=== PATIENT | female | born 1940 | race Caucasian/White ===

== ENCOUNTER → 2017-03-12 | Outpatient (CLI) | payer OTHER, MEDICARE | END | disposition home or self-care (01) | DX: M17.11 Unilateral primary osteoarthritis, right knee (principal); R26.9 Unspecified abnormalities of gait and mobility; R29.3 Abnormal posture; M79.604 Pain in right leg; M25.561 Pain in right knee; M25.661 Stiffness of right knee, not elsewhere classified; Z74.1 Need for assistance with personal care | CPT/HCPCS: 97110 GP; 97150 GO; 97161 GP; 97165 GO; G8978 GP; G8979 GP; G8980 GP; G8987 GO; G8988 GO; G8989 GO ==

== ENCOUNTER 2017-04-08 21:25 | Inpatient (IN) | payer OTHER, MEDICARE ==
[~2017-04-08] VITALS: Ht 172.7 cm; Wt 84.8 kg
[~2017-04-08 21:25] MED LIST: ESSENTIAL WOMA1 EAC1 PO; GLUCOPHAGE1000 MG PO; HYDROCHLOROTH12.5 M3 PO; HYDROCHLOROTHIA25 MG PO; NORVASC5 MG PO; VOLTAREN50 MG PO; ZESTRIL20 MG PO; ZOCOR20 MG PO
[2017-04-09] MEDS ORDERED: LOPRESSOR25 MG PO (11:19)
[2017-04-09 11:30] VITALS: BP 153/74
[2017-04-09 15:45] LABS: POINT-OF-CARE METER ID UU13113675; POINT-OF-CARE USER ID ADMSLT55
[2017-04-09 16:56] VITALS: BP 134/63
[2017-04-09 17:00] VITALS: BP 129/59
[2017-04-09 17:41] LABS: POINT-OF-CARE METER ID UU13113712
[2017-04-09 20:31] VITALS: BP 118/57
[2017-04-09 21:00] VITALS: BP 116/59
[2017-04-09 21:49] LABS: POINT-OF-CARE METER ID UU13113712
[2017-04-10] VITALS (7 sets, daily range): BP systolic 98–137; BP diastolic 50–69
[2017-04-10 04:51] LABS: HEMATOCRIT 31.9 % (36.0-46.0); MCV 91.4 FL (83-99)
[2017-04-10 05:01] LABS: CHLORIDE 107 mEq/L (99-109); POTASSIUM 4.8 mEq/L (3.7-5.4); SODIUM 139 mEq/L (136-147)
[2017-04-10 05:02] LABS: GLUCOSE 147 mg/dL (70-99)
[2017-04-10 05:04] LABS: ANION GAP 11 MEQ/L (2-14)
[2017-04-10 05:06] LABS: GFR ESTIMATE (CALCULATED) > 59 mL/min/
[2017-04-10 05:07] LABS: UREA NITROGEN (BUN) 20 mg/dL (9-23)
[2017-04-10 07:25] LABS: POINT-OF-CARE METER ID UU13113712
[2017-04-10 11:41] LABS: POINT-OF-CARE METER ID UU13113712
[2017-04-10] MEDS ORDERED: ENDOCET 5-3251 EACH PO (12:31)
[2017-04-10] MEDS ORDERED: ELIQUIS2.5 MG PO (12:31)
[2017-04-10 16:50] LABS: POINT-OF-CARE METER ID UU13113712
[2017-04-10 21:45] LABS: POINT-OF-CARE METER ID UU13113712
[2017-04-11 04:12] VITALS: BP 107/50
[2017-04-11 04:52] LABS: HEMATOCRIT 30.2 % (36.0-46.0); MCV 89.1 FL (83-99)
[2017-04-11 07:23] LABS: POINT-OF-CARE METER ID UU13113712; POINT-OF-CARE USER ID ENVGAF
[2017-04-11 07:57] VITALS: BP 137/60
[2017-04-11 12:05] VITALS: BP 148/67
[2017-04-11 12:13] LABS: POINT-OF-CARE METER ID UU13113712; POINT-OF-CARE USER ID ENVGAF
== END 2017-04-11 14:38 | DRG 470 ==
LOC: ENRESERV 21:25 → 2SOUTH 04-09 10:38 → 3WEST 04-09 10:38 → 2SOUTH 04-09 11:13 → 3WEST 04-09 16:20
PROVIDERS: Orthopaedic Surgery
PROC: 0SRC0J9 Replacement of Right Knee Joint with Synthetic Substitute, Cemented, Open Approach (ICD-10-PCS; principal; 2017-04-09)
DX: M17.11 Unilateral primary osteoarthritis, right knee (principal); I10 Essential (primary) hypertension; E78.00 Pure hypercholesterolemia, unspecified; E11.9 Type 2 diabetes mellitus without complications
CPT/HCPCS: 80048; 82948; 85014; 85018; C1713; J1815; J1885; J2175; J2250; J2405; J3010; J3370; J7050; J7120